=== PATIENT | male | born 1930 ===

== ENCOUNTER → 2018-08-17 | Outpatient (REF) | LOC: ZZSLMC 12:00 | PROVIDERS: ATTEND Family Medicine | DX: C44.219 Basal cell carcinoma of skin of left ear and external auricular canal (principal) | CPT/HCPCS: 88305 ==

== ENCOUNTER → 2018-11-30 | Outpatient (REF) | LOC: ZZSLMC 12:00 | PROVIDERS: ATTEND Family Medicine | DX: L82.1 Other seborrheic keratosis (principal) | CPT/HCPCS: 88305 ==